=== PATIENT | male | born 1945 | race Caucasian/White ===

== ENCOUNTER → 2016-12-28 | Outpatient (CLI) | payer OTHER | LOC: BRMIMAGING 08:22 | PROVIDERS: ATTEND Family Medicine | DX: Z13.820 Encounter for screening for osteoporosis (principal); M85.80 Other specified disorders of bone density and structure, unspecified site; Z79.890 Hormone replacement therapy ==

== ENCOUNTER → 2018-04-11 | Outpatient (CLI) | payer OTHER ==
[~2018-04-11] MED LIST: IOHEXOL 350mgI/ML (OMNIPAQUE) 150 ML BTL IV ONE
== END ==
LOC: FIMAGING 08:29
PROVIDERS: ATTEND Specialist
DX: R59.1 Generalized enlarged lymph nodes (principal); C61 Malignant neoplasm of prostate; K76.9 Liver disease, unspecified; M51.36 Other intervertebral disc degeneration, lumbar region
CPT/HCPCS: 74177; Q9967; 82565-PO